=== PATIENT | female | born 1975 | race Caucasian/White ===

== ENCOUNTER 2019-01-29 09:15 | Day surgery (SDC) | payer OTHER ==
[~2019-01-29] VITALS: Ht 157.5 cm; Wt 46.1 kg
[~2019-01-29 09:15] MED LIST: ABX; FER325 PO; OMEP20CA17 PO; PROAIR INH; XANAX
[2019-01-29 10:12] VITALS: Ht 157.5 cm; Wt 46.1 kg
[2019-01-29] MEDS ORDERED: LIDOCAINE 2% (SDV) 5 ML INJ ONE (10:22)
[2019-01-29] MEDS ORDERED: PROPOFOL 40 ML ONE (10:22)
[2019-01-29 10:37] VITALS: BP 112/55; PULSE 63; RESP 16
[2019-01-29] MEDS ORDERED: hydrALAzine 20 MG INJ IV PRN (11:30)
[2019-01-29] MEDS ORDERED: ONDANSETRON 4 MG INJ IV PRN (11:30)
[2019-01-29] MEDS ORDERED: LABETALOL HCL 20MG INJ IV PRN (11:30)
[2019-01-29] MEDS ORDERED: METOCLOPRAMIDE 10 MG INJ IV PRN (11:30)
[2019-01-29] MEDS ORDERED: EPHEDrine 25 MG/5 ML SYG IV PRN (11:30)
[2019-01-29] MEDS ORDERED: DIPHENHYDRAMINE 50 MG INJ IV PRN (11:30)
[2019-01-29 11:50] VITALS: BP 96/62; PULSE 59; RESP 18
== END 2019-01-29 13:04 | disposition home or self-care (01) ==
LOC: GIL 09:15
PROVIDERS: ATTEND Internal Medicine Gastroenterology
DX: R19.4 Change in bowel habit (principal); K64.8 Other hemorrhoids; K44.9 Diaphragmatic hernia without obstruction or gangrene; K21.9 Gastro-esophageal reflux disease without esophagitis; Z87.891 Personal history of nicotine dependence
CPT/HCPCS: 43239; 45380; 84703; 88305; Z7610; 88312